=== PATIENT | female | born 1985 | race Caucasian/White ===

== ENCOUNTER → 2019-09-02 12:01 | Observation (INO) ==
[2019-09-02 11:27] LABS: Bilirubin,Urine Negative (Negative); Blood,Urine Negative (Negative); Clarity,Urine Cloudy (Clear); Color,Urine Yellow (Yellow); Glucose,Urine (UA) Normal (Normal); Ketones,Urine Negative (Negative); Leukocyte Esterase,Urine Negative (Negative); Nitrite,Urine Negative (Negative); Protein,Urine Negative (Neg-Trace); Specific Gravity,Urine 1.011 (1.010-1.025); Urobilinogen,Urine Normal (Normal)
[2019-09-02 11:30] LABS: Bacteria,Urine None Seen per hpf (None-Few); Hyaline Casts,Urine None Seen per lpf (None-Few); RBC,Urine 0-3 per hpf (0-3); Squamous Epithelial Cell,Urine Many per lpf (None-Few); WBC,Urine 0-3 per hpf (0-3)
[2019-09-02 11:34] LABS: Amphetamine Screen,Urine Negative ng/mL (Cutoff=1000); Barbiturate Screen,Urine Negative ng/mL (Cutoff=200); Benzodiazepines Screen,Urine Negative ng/mL (Cutoff=200); Cannabinoid Screen,Urine Negative ng/mL (Cutoff = 50); Cocaine Screen,Urine Negative ng/mL (Cutoff= 300); Opiate Screen,Urine Negative ng/mL (Cutoff=300); Phencyclidine Screen,Urine Negative ng/mL (Cutoff=25)
[2019-09-02 13:40] LABS: Protein/Creatinine Ratio,Urine 0.32 mg/mg (0.00-0.20)
== END | disposition home or self-care (01) ==
LOC: 1NENULAB
PROVIDERS: ADMIT Registered Nurse; ATTEND Registered Nurse

== ENCOUNTER 2019-11-07 11:55 | Inpatient (IN) ==
[~2019-11-07 11:55] MED LIST: *HR* Nalbuphine 10 MG/ML AMPUL IVP PRN; Famotidine 20 MG/2 ML VIAL IVP PRN; Lidocaine 1% 20 ML MDV ID PRN; Metoclopramide 10 MG/2 ML VIAL IVP PRN; Naloxone 0.4 MG/ML INJ IVP PRN; Ondansetron 4 MG/2 ML VIAL IVP PRN
[2019-11-07] MEDS ORDERED: Penicillin G Potassium 5,000,000 UNIT in 0.9 % Sodium Chloride Mini Bag 100 ML IVPB ONE (11:58)
[2019-11-07] MEDS ORDERED: Ringers Solution, Lactated 1,000 ML IVC SCH (12:00)
[2019-11-07] MEDS ORDERED: *HR* Nalbuphine 10 MG/ML AMPUL ONE (12:11)
[2019-11-07] MEDS ORDERED: Ringers Solution, Lactated 1,000 ML ONE (12:11)
[2019-11-07] MEDS ORDERED: EPHEDrine 50 MG/ML VIAL IVP PRN (12:12)
[2019-11-07] MEDS ORDERED: Epidural Premix (fent/bupiv) 110 ML EP SCH (12:15)
[2019-11-07 12:29] LABS: Basophils % 0.3 %; Eosinophils # 0.1 K/mcL (0.0-0.6); Eosinophils % 0.8 %; Hematocrit 36.1 % (35.3-44.9); Hemoglobin 12.4 g/dL (11.5-15.4); Immature Granulocytes % 0.8 % (0-4); Lymphocytes # 2.5 K/mcL (0.6-4.6); Lymphocytes % 17.5 %; Mean Corpuscular HGB Conc 34.3 g/dL (31.6-35.5); Mean Corpuscular Hemoglobin 32.9 pg (28.0-33.3); Mean Corpuscular Volume 95.8 fL (83.0-100.0); Mean Platelet Volume 9.6 fL (9.4-12.4); Monocytes # 0.9 K/mcL (0.0-1.3); Monocytes % 6.6 %; Neutrophils # 10.6 K/mcL (1.6-8.9); Platelet Count 294 K/mcL (140-400); Red Blood Count 3.77 M/mcL (3.82-4.97); Red Cell Distribution Width 12.8 % (11.5-14.5); White Blood Count 14.3 K/mcL (4.3-11.1)
[2019-11-07] MEDS ORDERED: Ropivacaine/PF 0.2% 20 ML VIAL ONE (12:46)
[2019-11-07] MEDS ORDERED: *HR* FentaNYL (PF) 100 MCG/2 ML VIAL ONE (12:46)
[2019-11-07 14:40] LABS: Amphetamine Screen,Urine Negative ng/mL (Cutoff=1000); Barbiturate Screen,Urine Negative ng/mL (Cutoff=200); Benzodiazepines Screen,Urine Negative ng/mL (Cutoff=200); Cannabinoid Screen,Urine Negative ng/mL (Cutoff = 50); Cocaine Screen,Urine Negative ng/mL (Cutoff= 300); Opiate Screen,Urine Negative ng/mL (Cutoff=300); Phencyclidine Screen,Urine Negative ng/mL (Cutoff=25)
[2019-11-07] MEDS ORDERED: Oxytocin 20 units/ LR 1000 mL 20 UNIT/1,000 ML BAG IVC SCH ×4 (14:45→23:02)
[2019-11-07] MEDS ORDERED: Penicillin G Potassium 2,500,000 UNIT in 0.9 % Sodium Chloride 100 ML IVPB SCH (16:00)
[2019-11-07] MEDS ORDERED: Acetaminophen 325 MG TABLET PO PRN (21:01)
[2019-11-07] MEDS ORDERED: Benzocaine/Menthol 56 GM AEROSOL SPRAY TP PRN ×2 (21:01→23:02)
[2019-11-07] MEDS ORDERED: Ibuprofen 600 MG TABLET PO PRN (21:01)
[2019-11-07] MEDS ORDERED: Lanolin 7 G OINT...G. TP PRN ×2 (21:01→23:02)
[2019-11-07] MEDS ORDERED: Famotidine 20 MG/2 ML VIAL IVP PRN (23:02)
[2019-11-08] MEDS: Prenatal Vit/FA 1 EACH TABLET PO SCH (08:01)
[2019-11-08] MEDS ORDERED: Prenatal Vit/FA 1 EACH TABLET PO SCH (09:00)
[2019-11-08] MEDS: Acetaminophen 325 MG TABLET PO PRN ×2 (17:13→23:21)
[2019-11-08] MEDS: Ibuprofen 600 MG TABLET PO PRN ×2 (17:13→23:21)
[2019-11-08 21:19] VITALS: BP 144/68
[2019-11-09] MEDS: Acetaminophen 325 MG TABLET PO PRN (10:32)
[2019-11-09] MEDS: Prenatal Vit/FA 1 EACH TABLET PO SCH (10:33)
== END 2019-11-09 14:25 | disposition home or self-care (01) | DRG 807 ==
LOC: 1NENULAB → MERGE 11:55 → 1NENUOBS 23:01
PROVIDERS: ADMIT Registered Nurse; ATTEND Registered Nurse